=== PATIENT | male | born 1940 | race Caucasian/White ===

== ENCOUNTER 2020-04-28 11:57 | Inpatient (IN) ==
--- NOTE | 2020-04-28 12:19 | Emergency Department Note ---
SOB HPI General Chief Complaint: Shortness of Breath/Dyspnea Stated Complaint: states needs a thorocentesis Time Seen by Provider: 04/28/20 12:08 Source: patient, family and RN notes reviewed Mode of arrival: wheelchair Limitations: no limitations History of Present Illness HPI Narrative: Narrative: This patient apparently has lung cancer with metastasis to liver. This was diagnosed about a month ago when he came in with a pleural effusion which was drained. He has apparently reaccumulated and feels short of breath would like to be drained again. There is a plan this Monday to place a catheter and has chest for continuous drainage. Apparently he is not going to do radiation or chemotherapy at this time per Dr. Mei. Patient has felt short of breath for the last few days and is on oxygen at home. He has had a COVID test that was negative and has to have another one done tomorrow before the procedure at [facility]. Complaint: shortness of breath Onset (ago): day(s) Context: other (Lung cancer) Severity: moderate Consistency/Duration: constant Improves with: oxygen Worsens with: lying flat Known history of: other (Lung cancer) Associated symptoms: Reports denies other symptoms Related Data Home Medications Medication Instructions Recorded Confirmed cholecalciferol (vitamin D3) 5,000 unit PO Q48H 07/03/15 04/28/20 furosemide 40 mg PO BID 07/03/15 04/28/20 vitamin B complex [B-50 Complex] 1 ea PO DAILY 07/03/15 04/28/20 atorvastatin 40 mg PO QDAY 03/24/20 04/28/20 bupropion HCl 150 mg PO BID 03/24/20 04/28/20 cyclosporine 50 mg PO BID 03/24/20 04/28/20 metoprolol succinate 25 mg PO BID 03/24/20 04/28/20 prednisone 5 mg PO QDAY 03/24/20 04/28/20 Previous Rx's Medication Instructions Recorded pantoprazole 40 mg PO QAMAC #30 tab 07/14/15 Allergies Allergy/AdvReac Type Severity Reaction Status Date / Time No Known Drug Allergies Allergy Verified 03/24/20 16:13 Review of Systems ROS ROS Narrative: Narrative: All systems ED: reviewed and negative except as stated. Constitutional: Denies fever and chills Cardiovascular: Denies chest pain PFSH Narrative Patient History Narrative: Narrative: Medical/Surgical/Family History All Active Problems (Updated 04/28/20 @ 18:50 by Elijah Dash MD) Pleural effusion on left (Acute) Mass of lung (Acute) Liver mass (Acute) COPD (chronic obstructive pulmonary disease) (Acute) Pneumonia (Acute) Metastatic cancer (Acute) Respiratory distress (Acute) Congestive heart failure (Acute) Nephrotic syndrome (Acute) Pneumonia of both lower lobes (Acute) Thrombocytopenia (Acute) Anasarca associated with disorder of kidney (Acute) Hyperglycemia (Acute) Leucocytosis (Acute) Hyperuricemia without signs inflammatory arthritis/tophaceous disease (Acute) Anterior epistaxis (Acute) Epistaxis (Acute) Scalp laceration (Acute) Medical History (Updated 04/28/20 @ 18:50 by Elijah Dash MD) Anasarca associated with disorder of kidney (Acute) Anterior epistaxis (Acute) Congestive heart failure (Acute) Epistaxis (Acute) Hyperglycemia (Acute) Hyperuricemia without signs inflammatory arthritis/tophaceous disease (Acute) Leucocytosis (Acute) Nephrotic syndrome (Acute) 1. Acute renal failure with nephrotic syndrome. His primary pathology is unknown as he never had a kidney biopsy. 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 At that point he was treated with low dose prednisone. In 04/2012, his serum creatinine was 0.9. He had done fairly well. In 05/2015 he started developing more edema of the lower extremities. He had his blood drawn on 06/19/2015 and came to see me on 06/30/15. At that time he had a significant anasarca and elevated serum creatinine and a protien/creatinine of 22. For those reasons on 06/30/2015, I started him on prednisone 60 mg once daily and increased his Lasix to 80 mg twice daily along with metolazone. Despite this therapy his edema did not improve and his serum creatinine got worse. He is hospitalized on 07/03/2015 started on Solu-Medrol 160 mg IV q.8h. and also give him IV Lasix 80 mg q.8h. along with metolazone 10 mg once daily. I will get an ultrasound fo the kidneys along with doppler of the renal veins. I stopped the lisinopril. He finally responded with drop in serum creatinine and drop in proteinuria with improvement in fluid status. He had kidney biopsy 07/13/2015. Will discharge him home on Lasix 80mg po bid along with metalazone 2.5mg a day in addition to Prednisone 60mg a day. Will follow with him in 2 weeks. 2. Anasarca as above. Will change to po Lasix. 3. Hypertension. Better. Keep him off lisinopril. 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 3. Proteinuria as above. 4. Tobacco use as above. On Patch. Pneumonia of both lower lobes (Acute) Respiratory distress (Acute) Thrombocytopenia (Acute) Social History Smoking Status: Former smoker Exam Narrative Narrative: Narrative: General Limitations: no limitations Head Head: Present atraumatic, normocephalic and normal inspection Eye Eye: Present normal appearance and EOMI; Absent scleral icterus and conjunctival injection ENT ENT: Present normal exam, normal oropharynx and mucous membranes moist Chest Chest: Present normal inspection and symmetric chest wall rise Respiratory Respiratory: Present decreased breath sounds Cardiovascular Cardiovascular: Present regular rate, normal rhythm and normal heart sounds Neurological Neurological: Present alert Psychiatric Psychiatric: Present normal affect Skin Skin: Present warm (WNL) and dry; Absent diaphoresis Course Vital Signs Vital signs: Vital Signs Temperature 97.0 F 04/28/20 12:03 Pulse Rate 136 H 04/28/20 12:03 Respiratory Rate 28 H 04/28/20 12:03 Blood Pressure 149/101 04/28/20 12:03 Pulse Oximetry (%) 91 04/28/20 12:03 Temperature 97.0 F 04/28/20 12:03 Pulse Rate 103 H 04/28/20 16:40 Respiratory Rate 21 04/28/20 17:40 Blood Pressure 133/77 04/28/20 17:20 Pulse Oximetry (%) 97 04/28/20 16:40 [facility] MDM Narrative Medical decision making narrative: Narrative: This patient has extensive left-sided pneumonia with loculated effusions. I spoke with Dr. Mei his oncologist who saw him Monday and determined that he was not a candidate for chemotherapy. He felt he was just too weak. I discussed this case with Dr. Irwin who said a chest tube would not solve the problem that the only approach would be to do a decortication procedure which no surgeon would do to this patient and his given condition. I then spoke with Dr. Simpson he will admit the patient to the hospital basically for some IV antibiotics and initiation of hospice. Patient is requesting DNR. Lab Data Lab results reviewed: Yes I reviewed the patient's lab results. Lab results narrative: White count was elevated Result diagrams: 04/28/20 13:32 04/28/20 13:32 Labs: Lab Results 04/28/20 04/28/20 04/28/20 Range/Units 13:32 13:32 13:33 WBC 13.3 H (4.5-11.0) K/mcL RBC 3.80 L (4.50-5.90) M/mcL Hgb 10.8 L (13.5-16.5) g/dL Hct 37.1 L (41.0-55.0) % MCV 97.6 (80.0-100.0) fL MCH 28.4 (26.0-34.0) pg MCHC 29.1 L (31.0-36.0) g/dL RDW 15.2 H (11.5-14.5) % Plt Count 213 (140-440) K/mcL Neut % (Auto) 84.4 H (38.0-78.0) % Lymph % (Auto) 6.6 L (15.0-49.0) % [place] % (Auto) 8.6 (1.0-12.0) % Eos % (Auto) 0.2 (0.0-7.0) % Baso % (Auto) 0.2 (0.0-2.0) % Lymph # (Auto) 0.88 L (1.50-4.80) K/mcL [place] # (Auto) 1.14 H (0.10-0.90) K/mcL Eos # (Auto) 0.02 (0.00-0.70) K/mcL Baso # (Auto) 0.03 (0.00-0.20) K/mcL VBG Lactic Acid (0.5-2.0) mmol/L Sodium 139 (133-145) mmol/L Potassium 4.2 (3.3-5.1) mmol/L Chloride 91 L (96-108) mmol/L Carbon Dioxide 38 H (22-30) mmol/L Anion Gap 10.0 (8.0-16.0) BUN 17 (8-23) mg/dL Creatinine 0.8 (0.7-1.2) mg/dL GFR Calculation 86 Glucose 100 (70-105) mg/dL Calcium 9.7 (8.6-10.4) mg/dL Total Bilirubin 0.5 (0.1-1.0) mg/dL AST 125 H (<40) U/L ALT 119 H (<40) U/L Alkaline Phosphatase 803 H (39-117) U/L Troponin T < 0.01 (<0.03) ng/mL NT-Pro-B Natriuret Pep 507.0 H (<450.0) pg/mL Total Protein 7.2 (5.9-8.4) gm/dL Albumin 2.4 L (3.2-5.2) gm/dL Globulin 4.8 H (2.2-3.7) gm/dL Albumin/Globulin Ratio 0.5 L (1.0-2.3) Abs Neutrophil Control 11.20 H (1.80-8.00) K/mcL 04/28/20 Range/Units 13:39 WBC (4.5-11.0) K/mcL RBC (4.50-5.90) M/mcL Hgb (13.5-16.5) g/dL Hct (41.0-55.0) % MCV (80.0-100.0) fL MCH (26.0-34.0) pg MCHC (31.0-36.0) g/dL RDW (11.5-14.5) % Plt Count (140-440) K/mcL Neut % (Auto) (38.0-78.0) % Lymph % (Auto) (15.0-49.0) % [place] % (Auto) (1.0-12.0) % Eos % (Auto) (0.0-7.0) % Baso % (Auto) (0.0-2.0) % Lymph # (Auto) (1.50-4.80) K/mcL [place] # (Auto) (0.10-0.90) K/mcL Eos # (Auto) (0.00-0.70) K/mcL Baso # (Auto) (0.00-0.20) K/mcL VBG Lactic Acid 1.2 (0.5-2.0) mmol/L Sodium (133-145) mmol/L Potassium (3.3-5.1) mmol/L Chloride (96-108) mmol/L Carbon Dioxide (22-30) mmol/L Anion Gap (8.0-16.0) BUN (8-23) mg/dL Creatinine (0.7-1.2) mg/dL GFR Calculation Glucose (70-105) mg/dL Calcium (8.6-10.4) mg/dL Total Bilirubin (0.1-1.0) mg/dL AST (<40) U/L ALT (<40) U/L Alkaline Phosphatase (39-117) U/L Troponin T (<0.03) ng/mL NT-Pro-B Natriuret Pep (<450.0) pg/mL Total Protein (5.9-8.4) gm/dL Albumin (3.2-5.2) gm/dL Globulin (2.2-3.7) gm/dL Albumin/Globulin Ratio (1.0-2.3) Abs Neutrophil Control (1.80-8.00) K/Health system Radiology Data Radiology results reviewed: Yes I reviewed the patient's radiology results. Radiology results narrative: Chest x-ray and ultrasound are consistent with loculated effusion in the left lung field. Discharge Plan Patient/Caregiver Discharge Instructions Pt seen by BACK ROLLER/PA only: No Clinical Impression: Pneumonia, Metastatic cancer Patient Disposition: Xfer As Inpt ([facility]) Condition: Fair Follow up with: Natalia Milan ARNP [Primary Care Provider] - Prescriptions: No Action furosemide 40 MG tablet 40 mg PO BID RF: 0 cholecalciferol (vitamin D3) 5,000 UNIT capsule 5,000 unit PO Q48H RF: 0 vitamin B complex [B-50 Complex] 1 EACH tablet 1 ea PO DAILY RF: 0 pantoprazole 40 MG tablet 40 mg PO QAMAC Qty: 30 RF: 6 atorvastatin 40 mg Tablet 40 mg PO QDAY RF: 0 bupropion HCl 150 mg Tablet Sustained-Release 12 Hr 150 mg PO BID RF: 0 prednisone 5 mg Tablet 5 mg PO QDAY RF: 0 cyclosporine 25 mg Capsule 50 mg PO BID RF: 0 metoprolol succinate 25 mg Tablet Extended Release 24 Hr 25 mg PO BID RF: 0
--- NOTE | 2020-04-28 12:46 | XRay Report ---
HISTORY: Short of breath, pleural effusion FINDINGS: There is a severe diffuse alveolar infiltrate throughout the left lung. Superimposed is a small left-sided pleural effusion. The infiltrate has become significantly worse since prior chest CT done on 03/24/20. The pleural effusion has not changed substantially. The pleural fusion appeared loculated on the prior CT scan. There is a peripheral lung nodule laterally in the right upper lobe which measures 2 cm. This was seen on prior study and remains stable. This appeared to be a neoplasm on the CT scan. Mild interstitial fibrosis is present in the right lower lobe and there is emphysema in the right upper lobe. The heart is largely obscured by the consolidated lung but is not abnormally enlarged. IMPRESSION: Severe pneumonia throughout the left lung which may obscure underlying tumor. Stable small left-sided pleural effusion Emphysema and pulmonary fibrosis. Stable right upper lobe pulmonary mass Interpreted and Authenticated by: Cayetano West 04/28/20
--- NOTE | 2020-04-28 13:28 | Ultrasound Report ---
History: short of breath and pleural effusion FINDINGS: There are several pockets of loculated pleural fluid in the left mid and lower thorax. There are thickened pleural rinds around some of the pockets of fluid. Much of the fluid appears thickened and echogenic. There is not enough free fluid in the pleural space to justify thoracentesis. Thoracentesis was then canceled. IMPRESSION: Small multiloculated left-sided pleural effusion Interpreted and Authenticated by: Cayetano West 04/28/20
[2020-04-28] MEDS ORDERED: AZITHROMYCIN 500 MG in DEXTROSE 5% IN WATER 250 ML IV ONE (13:41)
[2020-04-28] MEDS ORDERED: cefTRIAXone 1 GM VIAL IV ONE (13:41)
[2020-04-28 15:01] LABS: ALT/SGPT 119 U/L (<40); AST/SGOT 125 U/L (<40); Albumin 2.4 gm/dL (3.2-5.2); Albumin/Globulin Ratio 0.5 (1.0-2.3); Alkaline Phosphatase 803 U/L (39-117); Bilirubin,Total 0.5 mg/dL (0.1-1.0); Blood Urea Nitrogen 17 mg/dL (8-23); Calcium 9.7 mg/dL (8.6-10.4); Carbon Dioxide 38 mmol/L (22-30); Chloride 91 mmol/L (96-108); Globulin 4.8 gm/dL (2.2-3.7); Glomerular Filtration Rate 86; Glucose 100 mg/dL (70-105)
[2020-04-28 16:19] LABS: Basophils # (Auto) 0.03 K/mcL (0.00-0.20); Basophils % (Auto) 0.2 % (0.0-2.0); Eosinophils # (Auto) 0.02 K/mcL (0.00-0.70); Eosinophils % (Auto) 0.2 % (0.0-7.0); Hematocrit 37.1 % (41.0-55.0); Hemoglobin 10.8 g/dL (13.5-16.5); Lymphocytes # (Auto) 0.88 K/mcL (1.50-4.80); Lymphocytes % (Auto) 6.6 % (15.0-49.0); Mean Cell Volume 97.6 fL (80.0-100.0); Mean Corpuscular HGB Conc 29.1 g/dL (31.0-36.0); Monocytes # (Auto) 1.14 K/mcL (0.10-0.90); Monocytes % (Auto) 8.6 % (1.0-12.0); Neutrophils % (Auto) 84.4 % (38.0-78.0); Platelet Count 213 K/mcL (140-440); Red Cell Distribution Width 15.2 % (11.5-14.5); WBC 13.3 K/mcL (4.5-11.0)
--- NOTE | 2020-04-28 19:44 | Internal Med History&Physical ---
HPI History of Present Illness Patient information: Note initiated : 04/28/20 at 7:33 pm Service Date, if different from initiated Date: [] Patient: Ind[place] Huggins a 79 y/o M admitted on for states needs a thorocentesis. Chief Complaint: [] History of present illness: Mr. Huggins is a 79 year old M Presents the ED with increasing shortness of breath. Patient initially presented to the ED early March for shortness of breath work-up in the ED and thereafter with pathology was consistent with cancer of the lung with mets to the liver. He saw Dr. Walter. Patient is not a treatment for cancer chemo or radiation. Patient gets therapeutic thoracentesis every few weeks since diagnosis. Is been on 5 L at home. Today felt more short of breath and needed 7 L and thought that he needed a thoracentesis so he came to the ED. He was evaluated did have an effusion but not as large as last time. Lung smith did show increased infiltrates. Sounds loculated effusions. Case discussed with general surgeon who felt to surgical chest tube would not be adequate that he is likely need decortication. Given his terminal diagnosis situation was discussed with the family as antibiotics alone or not can resolve this condition. Hospice discussion took place which they felt was the right thing to do. I then discussed case with ED physician. We will bring the patient in and provide antibiotics in the hopes to prolong his life to some degree while family is contacted so they can come into town. The meantime vocational case manager will set up home with hospice and will discharged home with hospice unless he has a decline in the hospital which I did discuss with him and his that could be a very real possibility. Patient denies any productive cough. He is afebrile. His white blood cell count is actually lower than his been. Review of Systems: Pertinent positives as above. Denies headache/fever/chills/nausea/vomiting/chest or abdominal pain/cough/diarrhea. Many 10 point review of system reviewed negative. PFSH PFSH All Active Problems (Updated 04/28/20 @ 18:50 by Elijah Dash MD) Pleural effusion on left (Acute) Mass of lung (Acute) Liver mass (Acute) COPD (chronic obstructive pulmonary disease) (Acute) Pneumonia (Acute) Metastatic cancer (Acute) Respiratory distress (Acute) Congestive heart failure (Acute) Nephrotic syndrome (Acute) Pneumonia of both lower lobes (Acute) Thrombocytopenia (Acute) Anasarca associated with disorder of kidney (Acute) Hyperglycemia (Acute) Leucocytosis (Acute) Hyperuricemia without signs inflammatory arthritis/tophaceous disease (Acute) Anterior epistaxis (Acute) Epistaxis (Acute) Scalp laceration (Acute) Medical History (Updated 04/28/20 @ 18:50 by Elijah Dash MD) Anasarca associated with disorder of kidney (Acute) Anterior epistaxis (Acute) Congestive heart failure (Acute) Epistaxis (Acute) Hyperglycemia (Acute) Hyperuricemia without signs inflammatory arthritis/tophaceous disease (Acute) Leucocytosis (Acute) Nephrotic syndrome (Acute) 1. Acute renal failure with nephrotic syndrome. His primary pathology is unknown as he never had a kidney biopsy. 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 At that point he was treated with low dose prednisone. In 04/2012, his serum creatinine was 0.9. He had done fairly well. In 05/2015 he started developing more edema of the lower extremities. He had his blood drawn on 06/19/2015 and came to see me on 06/30/15. At that time he had a significant anasarca and elevated serum creatinine and a protien/creatinine of 22. For those reasons on 06/30/2015, I started him on prednisone 60 mg once daily and increased his Lasix to 80 mg twice daily along with metolazone. Despite this therapy his edema did not improve and his serum creatinine got worse. He is hospitalized on 07/03/2015 started on Solu-Medrol 160 mg IV q.8h. and also give him IV Lasix 80 mg q.8h. along with metolazone 10 mg once daily. I will get an ultrasound fo the kidneys along with doppler of the renal veins. I stopped the lisinopril. He finally responded with drop in serum creatinine and drop in proteinuria with improvement in fluid status. He had kidney biopsy 07/13/2015. Will discharge him home on Lasix 80mg po bid along with metalazone 2.5mg a day in addition to Prednisone 60mg a day. Will follow with him in 2 weeks. 2. Anasarca as above. Will change to po Lasix. 3. Hypertension. Better. Keep him off lisinopril. 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 3. Proteinuria as above. 4. Tobacco use as above. On Patch. Pneumonia of both lower lobes (Acute) Respiratory distress (Acute) Thrombocytopenia (Acute) Social History (Updated 04/28/20 @ 19:38 by Mike Sibley DO) smoking status: Former smoker additional history: Family history mother and father both of lung cancer Social patient quit smoking a month ago after finding about his diagnosis. He lives at home with his and ambulates with a cane MEDS/ALLERGIES Home Medications and Allergies Home Medications Medication Instructions Recorded Confirmed Type cholecalciferol (vitamin D3) 5,000 unit PO Q48H 07/03/15 04/28/20 History furosemide 40 mg PO BID 07/03/15 04/28/20 History vitamin B complex [B-50 Complex] 1 ea PO DAILY 07/03/15 04/28/20 History pantoprazole 40 mg PO QAMAC #30 tab 07/14/15 04/28/20 Rx atorvastatin 40 mg PO QDAY 03/24/20 04/28/20 History bupropion HCl 150 mg PO BID 03/24/20 04/28/20 History cyclosporine 50 mg PO BID 03/24/20 04/28/20 History metoprolol succinate 25 mg PO BID 03/24/20 04/28/20 History prednisone 5 mg PO QDAY 03/24/20 04/28/20 History Allergies Allergy/AdvReac Type Severity Reaction Status Date / Time No Known Drug Allergies Allergy Verified 03/24/20 16:13 EXAM Constitutional Vitals: Temp Pulse Resp BP Pulse Ox 97.3 F 138 H 25 H 131/78 93 04/28/20 18:21 04/28/20 19:11 04/28/20 19:11 04/28/20 18:41 04/28/20 19:11 Exam: General: Alert, Awake, No acute Distress Eyes/N/T: EOMI, PERRL, dry MM Head/Neck: neck supple, normocephalic atraumatic CV: RRR, No murmurs, normal s1/s2 Pulm: Rhonchi b/l, occasional wheezing Abd: soft, nontender, +BS x4, distended Ext: no clubbing/cyanosis/edema Neuro: Alert, no focal deficits, moves all extremities, CN 2-12 grossly intact, symmetrical strength b/l upper/lower, sensations intact b/l upper/lower Skin: warm/dry DATA Data Completed and Pending Labs: Labs from last 24 hours 04/28/20 04/28/20 04/28/20 13:39 13:33 13:32 WBC RBC Hgb Hct MCV MCH MCHC RDW Plt Count MPV Neut % (Auto) Lymph % (Auto) [place] % (Auto) Eos % (Auto) Baso % (Auto) Lymph # (Auto) [place] # (Auto) Eos # (Auto) Baso # (Auto) VBG Lactic Acid 1.2 Sodium 139 Potassium 4.2 Chloride 91 L Carbon Dioxide 38 H Anion Gap 10.0 BUN 17 Creatinine 0.8 GFR Calculation 86 Glucose 100 Calcium 9.7 Total Bilirubin 0.5 AST 125 H ALT 119 H Alkaline Phosphatase 803 H Troponin T < 0.01 NT-Pro-B Natriuret Pep 507.0 H Total Protein 7.2 Albumin 2.4 L Globulin 4.8 H Albumin/Globulin Ratio 0.5 L Abs Neutrophil Control 04/28/20 13:32 WBC 13.3 H RBC 3.80 L Hgb 10.8 L Hct 37.1 L MCV 97.6 MCH 28.4 MCHC 29.1 L RDW 15.2 H Plt Count 213 MPV Pending Neut % (Auto) 84.4 H Lymph % (Auto) 6.6 L [place] % (Auto) 8.6 Eos % (Auto) 0.2 Baso % (Auto) 0.2 Lymph # (Auto) 0.88 L [place] # (Auto) 1.14 H Eos # (Auto) 0.02 Baso # (Auto) 0.03 VBG Lactic Acid Sodium Potassium Chloride Carbon Dioxide Anion Gap BUN Creatinine GFR Calculation Glucose Calcium Total Bilirubin AST ALT Alkaline Phosphatase Troponin T NT-Pro-B Natriuret Pep Total Protein Albumin Globulin Albumin/Globulin Ratio Abs Neutrophil Control 11.20 H A/P Narrative A/P Narrative: A: *Acute on chronic hypoxic respiratory failure (5L O2 @home): *Advancing lung cancer with metastatic disease to the liver: -Has seen oncologist and condition is untreatable *Left lung loculated pleural (recurrent) effusions, likely pneumonia(likely post-obstructive)/empyema: *Nephrotic syndrome: On prednisone, follows with Dr. Noyola *HTN/HLD: *Depression: *GERD: *Goals of care: Trial of antibiotics and vocational case manager set up home with hospice. -If patient declines in the hospital will make straight comfort care. P: -IV abx -IS/Acapella -O2 support -CM for Home with Hospice -cont other home meds, - -ppx: lovenox DNR, if condition declines will make comfort care only Time Spent With Patient Time: Total time spent is greater than 50% in coordination of care (as documented) at patient's floor/unit and/or counseling patient:
[2020-04-28] MEDS ORDERED: POTASSIUM CHLORIDE 40 MEQ in DEXTROSE 5% IN WATER 500 ML IV PRN (20:10)
[2020-04-28] MEDS ORDERED: POLYETHYLENE GLYCOL 3350 17 GM PACKET PO PRN (20:10)
[2020-04-28] MEDS ORDERED: LACTULOSE 20 GM/30 ML ORAL.SOL PO PRN (20:10)
[2020-04-28] MEDS ORDERED: IPRATROPIUM/ALBUTEROL 3 ML AMPUL.NEB NEB PRN (20:10)
[2020-04-28] MEDS ORDERED: morphine 4 MG/ML VIAL NEB PRN (20:10)
[2020-04-28] MEDS ORDERED: POTASSIUM CHLORIDE 20 MEQ TABLET PO PRN ×2 (20:10)
[2020-04-28] MEDS ORDERED: MAGNESIUM SULFATE 2 GM/50 ML BAG IV PRN (20:10)
[2020-04-28] MEDS ORDERED: SENNOSIDES 1 TABLET PO PRN (20:10)
[2020-04-28] MEDS ORDERED: AZITHROMYCIN 500 MG in DEXTROSE 5% IN WATER 250 ML IV SCH (20:10)
[2020-04-28] MEDS ORDERED: ACETAMINOPHEN 325 MG TABLET PO PRN (20:10)
[2020-04-28] MEDS ORDERED: ONDANSETRON 4 MG/2 ML VIAL IV PRN (20:10)
[2020-04-28] MEDS: PIPERACILLIN SODIUM/TAZOBACTAM 3.375 GM in DEXTROSE 5% IN WATER 50 ML IV SCH (20:26)
[2020-04-28] MEDS: buPROPion 150 MG TAB.SR.12H PO SCH (22:20)
[2020-04-28] MEDS: METOPROLOL SUCCINATE 25 MG TAB.XL.24H PO SCH (22:20)
[2020-04-28] MEDS: DOCUSATE SODIUM 100 MG CAPSULE PO SCH (22:20)
[2020-04-28] MEDS: 0.9 % SODIUM CHLORIDE 10 ML SYRINGE IV SCH (22:25)
[2020-04-29] MEDS: PIPERACILLIN SODIUM/TAZOBACTAM 3.375 GM in DEXTROSE 5% IN WATER 50 ML IV SCH ×5 (00:51→23:56)
[2020-04-29] MEDS: 0.9 % SODIUM CHLORIDE 10 ML SYRINGE IV SCH ×4 (06:48→23:59)
--- NOTE | 2020-04-29 07:08 | Internal Med Progress Note ---
SUBJECTIVE Subjective Patient information: Note initiated : 04/29/20 at 7:06 am Service Date, if different from initiated Date: [] Patient: Indio Huggins a 79 y/o M admitted on 04/28/20 for states needs a thorocentesis. Chief Complaint: [] Interval history: History of present illness: Mr. Huggins is a 79 year old M Presents the ED with increasing shortness of breath. Patient initially presented to the ED early March for shortness of breath work-up in the ED and thereafter with pathology was consistent with cancer of the lung with mets to the liver. He saw Dr. Walter. Patient is not a treatment for cancer chemo or radiation. Patient gets therapeutic thoracentesis every few weeks since diagnosis. Is been on 5 L at home. Today felt more short of breath and needed 7 L and thought that he needed a thoracentesis so he came to the ED. He was evaluated did have an effusion but not as large as last time. Lung smith did show increased infiltrates. Sounds loculated effusions. Case discussed with general surgeon who felt to surgical chest tube would not be adequate that he is likely need decortication. Given his terminal diagnosis situation was discussed with the family as antibiotics alone or not can resolve this condition. Hospice discussion took place which they felt was the right thing to do. I then discussed case with ED physician. We will bring the patient in and provide antibiotics in the hopes to prolong his life to some degree while family is contacted so they can come into town. The meantime [employer] will set up home with hospice and will discharged home with hospice unless he has a decline in the hospital which I did discuss with him and his that could be a very real possibility. Patient denies any productive cough. He is afebrile. His white blood cell count is actually lower than his been. 04/29 Patient states he is feeling a little better today. States his shortness of breath is possibly a little better, states definitely not any worse. No coughing Review of Systems: denies headache/fever/chills/nausea/vomiting/chest or abdominal pain/cough/diarrhea. Otherwise see above. Constitutional Vitals: Vital Signs Temp Pulse Resp BP Pulse Ox 97.9 F 101 H 20 101/65 98 04/29/20 04:00 04/29/20 04:00 04/29/20 04:00 04/29/20 04:00 04/29/20 04:00 Period Temp Pulse Resp BP Sys/Li Pulse Ox Last 24 Hr 96.5 F-98.1 F 101-140 18-30 101-154/65-101 90-98 Intake and Output 04/28/20 04/29/20 04/29/20 21:59 05:59 13:59 Intake Total 300 75 Balance 300 75 Weight 82.191 kg Intake & Output: Intake & Output 04/28/20 04/29/20 04/29/20 21:59 05:59 13:59 Intake Total 300 75 Balance 300 75 Weight 82.191 kg Intake: IV 300 50 Zithromax 500 mg In Dextrose 5% 250 in Water 250 ml @ 250 mls/hr IV ONCE ONE Rx#:[id number] Zosyn 3.375 gm In Dextrose 5% 50 50 in Water 50 ml @ 100 mls/hr IV Q6H DERIK Rx#:[id number] Oral 25 Other: # Voids 1 Exam: General: Alert, Awake, No acute Distress Eyes/N/T: EOMI, Head/Neck: neck supple, CV: RRR, No murmurs, Pulm: dimished b/l, no wheezing Abd: soft, nontender, +BS x4, distended Ext: no clubbing/cyanosis/edema Neuro: Alert, no focal deficits, moves all extremities, Skin: warm/dry OBJ DATA Labs CBC & Chem 7: 04/28/20 13:32 04/28/20 13:32 Labs: Abnormal Lab Results 04/28/20 04/28/20 13:32 13:32 WBC 13.3 H RBC 3.80 L Hgb 10.8 L Hct 37.1 L MCHC 29.1 L RDW 15.2 H Neut % (Auto) 84.4 H Lymph % (Auto) 6.6 L Lymph # (Auto) 0.88 L [place] # (Auto) 1.14 H Chloride 91 L Carbon Dioxide 38 H AST 125 H ALT 119 H Alkaline Phosphatase 803 H NT-Pro-B Natriuret Pep 507.0 H Albumin 2.4 L Globulin 4.8 H Albumin/Globulin Ratio 0.5 L Abs Neutrophil Control 11.20 H Meds: Medications Acetaminophen (Tylenol) 650 mg PO Q6HP PRN PRN Reason: PAIN/FEVER > 101 Albuterol/Ipratropium (Duoneb) 3 ml NEB Q4HP PRN PRN Reason: Shortness Of Breath Bupropion HCl (Wellbutrin Sr) 150 mg PO BID [facility] Last Admin: 04/28/20 22:20 Dose: 150 mg Documented by: Docusate Sodium (Colace) 100 mg PO BID [facility] Last Admin: 04/28/20 22:20 Dose: 100 mg Documented by: Enoxaparin Sodium (Lovenox) 40 mg SQ DAILY [facility] Potassium Chloride 40 meq/ (Dextrose) 520 mls @ 130 mls/hr IV UD PRN PRN Reason: Potassium < 3 Magnesium Sulfate (Magnesium Sulfate) 2 gm in 50 mls @ 50 mls/hr IV UD PRN PRN Reason: Magnesium </= 1.6 Piperacillin Sod/Tazobactam (Sod 3.375 gm/ Dextrose) 50 mls @ 100 mls/hr IV Q6H [facility]; Protocol Last Admin: 04/29/20 06:49 Dose: 100 mls/hr Documented by: Azithromycin 500 mg/ Dextrose 250 mls @ 250 mls/hr IV Q24H [facility]; Protocol Stop: 04/30/20 10:59 Lactulose (Cephulac) 20 gm PO DAILYP PRN PRN Reason: Constipation Metoprolol Succinate (Toprol Xl) 25 mg PO BID [facility] Last Admin: 04/28/20 22:20 Dose: 25 mg Documented by: Morphine Sulfate (Morphine) 4 mg NEB Q4HP PRN; Protocol PRN Reason: Shortness Of Breath Ondansetron HCl (Zofran) 4 mg IV Q4HP PRN PRN Reason: Nausea And Vomiting Pantoprazole Sodium (Protonix) 40 mg PO QAMAC [facility] Polyethylene Glycol (Miralax) 17 gm PO DAILYP PRN PRN Reason: Constipation Potassium Chloride (Kdur) 40 meq PO UD PRN PRN Reason: Potssium is 3-3.5 Potassium Chloride (Kdur) 40 meq PO UD PRN PRN Reason: Potassium < 3 Prednisone (Prednisone) 5 mg PO QAC [facility] Senna (Senokot) 2 tab PO DAILYP PRN PRN Reason: Constipation Sodium Chloride (Saline Flush) 10 ml IV Q8 [facility] Last Admin: 04/29/20 06:48 Dose: 10 ml Documented by: A/P Narrative A/P Narrative: A: *Acute on chronic hypoxic respiratory failure (5L O2 @home): *Advancing lung cancer with metastatic disease to the liver: -Has seen oncologist and condition is untreatable *Left lung loculated pleural (recurrent) effusions, likely pneumonia(likely post-obstructive)/empyema: -Terminal state *Nephrotic syndrome: On prednisone, follows with Dr. Noyola *HTN/HLD: *Depression: *GERD: *Goals of care: Trial of antibiotics and [employer] set up home with hospice. -If patient declines in the hospital will make straight comfort care. P: -IV abx -IS/Acapella -O2 support -CM for Home with Hospice -cont other home meds, - -ppx: lovenox DNR, if condition declines will make comfort care only Time Spent With Patient Time: Total time spent is greater than 50% in coordination of care (as documented) at patient's floor/unit and/or counseling patient: QUALITY VTE Deep Vein Thrombosis/Pulmonary Embolism Present on Admission: No
[2020-04-29] MEDS: PANTOPRAZOLE 40 MG TABLET PO SCH (07:56)
[2020-04-29 08:41] LABS: ALT/SGPT 79 U/L (<40); AST/SGOT 91 U/L (<40); Albumin 2.2 gm/dL (3.2-5.2); Albumin/Globulin Ratio 0.6 (1.0-2.3); Alkaline Phosphatase 615 U/L (39-117); Bilirubin,Direct 0.3 mg/dL (<0.3); Bilirubin,Total 0.5 mg/dL (0.1-1.0); Blood Urea Nitrogen 19 mg/dL (8-23); Calcium 8.9 mg/dL (8.6-10.4); Carbon Dioxide 38 mmol/L (22-30); Chloride 94 mmol/L (96-108); Globulin 3.9 gm/dL (2.2-3.7); Glomerular Filtration Rate 82; Glucose 65 mg/dL (70-105); Lactate Dehydrogenase 435 U/L (135-225); Phosphorous 4.1 mg/dL (2.5-4.5); Triglycerides 87 mg/dL (<150); Uric Acid 6.1 mg/dL (2.5-8.0)
[2020-04-29] MEDS: METOPROLOL SUCCINATE 25 MG TAB.XL.24H PO SCH ×2 (09:34→21:13)
[2020-04-29] MEDS: ENOXAPARIN 40 MG/0.4 ML SYRINGE SQ SCH (09:34)
[2020-04-29] MEDS: DOCUSATE SODIUM 100 MG CAPSULE PO SCH ×2 (09:34→21:13)
[2020-04-29] MEDS: buPROPion 150 MG TAB.SR.12H PO SCH ×2 (09:34→21:14)
[2020-04-29] MEDS: AZITHROMYCIN 500 MG in DEXTROSE 5% IN WATER 250 ML IV SCH (09:34)
[2020-04-29] MEDS: predniSONE 5 MG TABLET PO SCH (09:35)
[2020-04-30] MEDS: 0.9 % SODIUM CHLORIDE 10 ML SYRINGE IV SCH (06:19)
[2020-04-30] MEDS: PIPERACILLIN SODIUM/TAZOBACTAM 3.375 GM in DEXTROSE 5% IN WATER 50 ML IV SCH ×2 (06:20→11:46)
[2020-04-30] MEDS: PANTOPRAZOLE 40 MG TABLET PO SCH (07:33)
[2020-04-30] MEDS: predniSONE 5 MG TABLET PO SCH (08:53)
[2020-04-30] MEDS: METOPROLOL SUCCINATE 25 MG TAB.XL.24H PO SCH (08:53)
[2020-04-30] MEDS: ENOXAPARIN 40 MG/0.4 ML SYRINGE SQ SCH (08:53)
[2020-04-30] MEDS: buPROPion 150 MG TAB.SR.12H PO SCH (08:53)
[2020-04-30] MEDS: DOCUSATE SODIUM 100 MG CAPSULE PO SCH (08:53)
[2020-04-30] MEDS: AZITHROMYCIN 500 MG in DEXTROSE 5% IN WATER 250 ML IV SCH (09:19)
[2020-04-30] MEDS ORDERED: CALCIUM CARBONATE 500 MG TAB.CHEW CHEWED ONE (10:47)
--- NOTE | 2020-04-30 11:13 | Discharge Summary ---
Discharge Provider Provider Patient information: Note initiated : 04/30/20 at 11:08 am Service Date, if different from initiated Date: [] Patient: Indio Huggins 79 y/o M admitted on 04/28/20 for states needs a thorocentesis. Chief Complaint: [] Date of admission: 04/28/20 19:56 Discharge date: 04/30/20 Primary care physician: Natalia Milan Consults: 04/28/20 Consult to Physician [CONS] Stat Comment: Consulting Provider: Mike Sibley Reason For Exam: Physician to Consult Discharge Meds Discharge Medications Home Medications cholecalciferol (vitamin D3) 5,000 unit PO Q48H 07/03/15 [History Confirmed 04/28/20 Last Taken 04/28/20 09:00] furosemide 40 mg PO BID 07/03/15 [History Confirmed 04/28/20 Last Taken 04/28/20 09:00] vitamin B complex [B-50 Complex] 1 ea PO DAILY 07/03/15 [History Confirmed 04/28/20 Last Taken 04/28/20 09:00] pantoprazole 40 mg PO QAMAC #30 tab 07/14/15 [Rx Confirmed 04/28/20 Last Taken 04/28/20 09:00] atorvastatin 40 mg PO QDAY 03/24/20 [History Confirmed 04/28/20 Last Taken 04/28/20 09:00] bupropion HCl 150 mg PO BID 03/24/20 [History Confirmed 04/28/20 Last Taken 04/28/20 09:00] cyclosporine 50 mg PO BID 03/24/20 [History Confirmed 04/28/20 Last Taken 04/28/20 09:00] metoprolol succinate 25 mg PO BID 03/24/20 [History Confirmed 04/28/20 Last Taken 04/28/20 09:00] prednisone 5 mg PO QDAY 03/24/20 [History Confirmed 04/28/20 Last Taken 04/28/20 09:00] azithromycin 500 mg PO QDAY 3 Days #3 tab 04/30/20 [Rx Last Taken Unknown] COURSE Hospital Course Hospital course: *Acute on chronic hypoxic respiratory failure (5L O2 @home): *Advancing lung cancer with metastatic disease to the liver: -Has seen oncologist and condition is untreatable *Left lung loculated pleural (recurrent) effusions, likely pneumonia(likely post-obstructive)/empyema: -Terminal state *Nephrotic syndrome: On prednisone, follows with Dr. Noyola *HTN/HLD: *Depression: *GERD: Mr. Huggins is a 79 year old M Presents the ED with increasing shortness of breath. Patient initially presented to the ED early March for shortness of breath work-up in the ED and thereafter with pathology was consistent with cancer of the lung with mets to the liver. He saw Dr. Walter. Patient is not a treatment for cancer chemo or radiation. Patient gets therapeutic thoracentesis every few weeks since diagnosis. Is been on 5 L at home. Today felt more short of breath and needed 7 L and thought that he needed a thoracentesis so he came to the ED. He was evaluated did have an effusion but not as large as last time. Lung smith did show increased infiltrates. Sounds loculated effusions. Case discussed with general surgeon who felt to surgical chest tube would not be adequate that he is likely need decortication. Given his terminal diagnosis situation was discussed with the family as antibiotics alone or not can resolve this condition. Hospice discussion took place which they felt was the right thing to do. I then discussed case with ED physician. We will bring the patient in and provide antibiotics in the hopes to prolong his life to some degree while family is contacted so they can come into town. The meantime case resolution specialist will set up home with hospice and will discharged home with hospice unless he has a decline in the hospital which I did discuss with him and his that could be a very real possibility. Patient denies any productive cough. He is afebrile. His white blood cell count is actually lower than his been. 04/29 Patient states he is feeling a little better today. States his shortness of breath is possibly a little better, states definitely not any worse. No coughing 04/30 Patient does not have any complaints. Vital signs are stable and acceptable. Patient will be discharged to home for home hospice care today. Discussed with the patient and who would like to continue his home medications at this time. When hospice care starts, they will ask hospice care team change the medications. They also would like to have some oral antibiotics. I will order azithromycin for him for 3 days. Call PCP and the hospice team for medical issues. Discharge diagnosis: Advancing lung cancer with metastatic disease to the liver Time Spent with Patient Time attestation: Total time spent providing and/or coordinating discharge services: EXAM Constitutional Vitals: Temp Pulse Resp BP Pulse Ox 98.1 F 84 22 96/61 92 04/30/20 07:19 04/30/20 07:19 04/30/20 07:19 04/30/20 07:19 04/30/20 07:19 Additional findings Additional findings: General: Alert, Awake, No acute Distress Eyes/N/T: EOMI, Head/Neck: neck supple, CV: RRR, No murmurs, Pulm: dimished b/l, no wheezing Abd: soft, nontender, +BS x4, distended Ext: no clubbing/cyanosis/edema Neuro: Alert, no focal deficits, moves all extremities, Skin: warm/dry Discharge Data Data Completed and Pending Labs on day of discharge: Preliminary micro results at discharge 04/29/20 10:09 Gram Stain - Preliminary Sputum - Induced Sputum Culture - Preliminary 04/28/20 14:13 Blood Culture - Preliminary Blood 04/28/20 14:04 Blood Culture - Preliminary Blood Discharge Plan Patient/Caregiver Discharge Instructions Prescriptions: New azithromycin 500 mg tablet 500 mg PO QDAY 3 Days Qty: 3 RF: 0 Continued furosemide 40 MG tablet 40 mg PO BID RF: 0 cholecalciferol (vitamin D3) 5,000 UNIT capsule 5,000 unit PO Q48H RF: 0 vitamin B complex [B-50 Complex] 1 EACH tablet 1 ea PO DAILY RF: 0 pantoprazole 40 MG tablet 40 mg PO QAMAC Qty: 30 RF: 6 atorvastatin 40 mg Tablet 40 mg PO QDAY RF: 0 bupropion HCl 150 mg Tablet Sustained-Release 12 Hr 150 mg PO BID RF: 0 prednisone 5 mg Tablet 5 mg PO QDAY RF: 0 cyclosporine 25 mg Capsule 50 mg PO BID RF: 0 metoprolol succinate 25 mg Tablet Extended Release 24 Hr 25 mg PO BID RF: 0 Follow Up Plan Follow up with: Natalia Milan ARNP [Primary Care Provider] - Unknown [Outside] (Follow with PCP and hospice care team for medical issues.) Patient Disposition: Hospice - Home Prognosis: Fair Discharge Orders: Discharge Order (Routine); Ordered 04/30/20 Ordered By: Hanna GONZALEZ VTE Deep Vein Thrombosis/Pulmonary Embolism Present on Admission: No
== END 2020-04-30 13:15 | disposition hospice, home (50) | DRG 180 ==
LOC: ED 11:57 → MEDSUR 19:56
PROVIDERS: ADMIT Internal Medicine; ATTEND Internal Medicine